=== PATIENT | female | born 1985 | race Caucasian/White ===

== ENCOUNTER 2016-10-15 11:24 | Emergency (ER) | payer OTHER ==
[~2016-10-15] VITALS: Ht 157.5 cm; Wt 57.2 kg
[2016-10-15] MEDS ORDERED: KETOROLAC TROMETHAMINE 60 MG/2 ML VIAL IM ONE (13:00)
[2016-10-15 13:19] VITALS: BP 117/77
== END 2016-10-15 13:22 | disposition home or self-care (01) ==
LOC: EMS 11:25
DX: M70.71 Other bursitis of hip, right hip (principal)
CPT/HCPCS: 81025; 96372; 99283; J1885

== ENCOUNTER 2022-04-29 15:34 | Emergency (ER) | payer OTHER ==
[~2022-04-29] VITALS: Ht 157.5 cm; Wt 61.4 kg
[2022-04-29] MEDS ORDERED: IBUPROFEN 600 MG TABLET PO ONE (16:15)
[2022-04-29] MEDS ORDERED: IBUP-1554 PO (18:11)
[2022-04-29] MEDS ORDERED: HYDR-4723 PO (18:11)
[2022-04-29 18:24] VITALS: BP 113/69
== END 2022-04-29 19:20 | disposition home or self-care (01) ==
LOC: EMS 15:36
DX: S52.201A Unspecified fracture of shaft of right ulna, initial encounter for closed fracture (principal); N15.9 Renal tubulo-interstitial disease, unspecified; Z87.440 Personal history of urinary (tract) infections; X58.XXXA Exposure to other specified factors, initial encounter; Y93.89 Activity, other specified; Y92.89 Other specified places as the place of occurrence of the external cause; Y99.8 Other external cause status
CPT/HCPCS: 99284; 73090-TC; 73110-TC; 73130-TC; Z7502; Z7610